=== PATIENT | male | born 1985 | race Two or more races ===

== ENCOUNTER 2023-06-25 19:14 | Emergency (ER) | payer MEDICAID, OTHER ==
[2023-06-25] MEDS ORDERED: CHL25C GT (19:43)
[2023-06-25 19:56] VITALS: BP 164/108; PULSE 84; RESP 16; TEMP 97.9; O2SAT 97
== END 2023-06-25 19:59 | disposition home or self-care (01) ==
LOC: ER 19:14
DX: F10.10 Alcohol abuse, uncomplicated (principal); F41.9 Anxiety disorder, unspecified; F31.9 Bipolar disorder, unspecified; F17.210 Nicotine dependence, cigarettes, uncomplicated

== ENCOUNTER 2023-06-29 20:45 | Emergency (ER) | payer MEDICAID ==
[~2023-06-29] VITALS: Ht 175.3 cm; Wt 72.7 kg
[~2023-06-29 20:45] MED LIST: CHL25C GT
[2023-06-29 21:18] VITALS: BP 167/100; PULSE 86; RESP 18; TEMP 97.7; O2SAT 98
[2023-06-29] MEDS ORDERED: DexAMETHasone SOD PHOS 10MG/1ML VIAL INJ IM ONE (22:00)
[2023-06-29] MEDS ORDERED: LIDOCAINE VISCOUS 2% 15ML UD MT ONE (22:00)
[2023-06-29] MEDS ORDERED: cefTRIAXone SOD 1,000 MG VL IM ONE (22:00)
[2023-06-30] MEDS ORDERED: CHL25C PO (00:29)
== END 2023-06-30 00:34 | disposition home or self-care (01) ==
LOC: ER 20:50
DX: F10.10 Alcohol abuse, uncomplicated (principal); F17.210 Nicotine dependence, cigarettes, uncomplicated; Z76.0 Encounter for issue of repeat prescription; Z79.899 Other long term (current) drug therapy; Y90.9 Presence of alcohol in blood, level not specified

== ENCOUNTER 2023-07-07 00:57 | Emergency (ER) | payer MEDICAID ==
[~2023-07-07] VITALS: Ht 177.8 cm; Wt 70.0 kg
[2023-07-07 00:57] VITALS: BP 166/83; PULSE 94; RESP 16; O2SAT 96
[~2023-07-07 00:57] MED LIST changes: +CHL25C PO
[2023-07-07 02:10] LABS: Basophils # (auto) 0 10 ^3/uL (0-0.2); Basophils % (auto) 0.5 % (0.0-2.0); Eosinophils # (auto) 0.2 10 ^3/uL (0-0.8); Eosinophils % (auto) 2.4 % (0.0-7.0); Hematocrit 48.4 % (41.0-53.0); Hemoglobin 16.3 g/dL (13.5-17.5); Lymphocytes # (auto) 2.6 10 ^3/uL (0.4-5.4); Mean Corpuscular Hemoglobin 32.1 pg (28.0-32.0); Mean Corpuscular Hgb Conc. 33.7 g/dL (32.0-36.0); Mean Corpuscular Volume 95.2 fL (80.0-100.0); Monocytes # (auto) 0.9 10 ^3/uL (0-1.3); Monocytes % (auto) 9.3 % (0.0-12.0); Neutrophils # (auto) 5.4 10 ^3/uL (1.6-8.6); Neutrophils % (auto) 59.8 % (37.0-80.0); Nucleated Red Blood Cells % 0.1 %; Red Blood Cells 5.08 10^6/uL (4.5-5.90); Red Cell Distribution Width 14.6 % (11.8-14.3); White Blood Cell 9.1 10^3/uL (4.4-10.8)
[2023-07-07 02:19] LABS: INR 0.93 (0.9-1.15); Prothrombin Time 9.8 sec (9.3-11.8)
[2023-07-07] MEDS ORDERED: SODIUM CHLORIDE 0.9% 1,000 ML IV ONE (03:00)
[2023-07-07 03:09] LABS: Alanine Aminotransferase 52 U/L (7-40); Albumin 5.5 g/dL (3.2-4.8); Alkaline Phosphatase 70 U/L (46-116); Anion Gap 9 (5-15); Aspartate Aminotransferase 43 U/L (13-40); BUN/Creatinine Ratio 7.1 (10.0-20.0); Blood Urea Nitrogen 7 mg/dL (9-23); Calcium 9.7 mg/dL (8.7-10.4); Carbon Dioxide 25 mmol/L (20-30); Chloride 110 mmol/L (98-107); Glucose 99 mg/dL (74-106); Potassium 3.9 mmol/L (3.5-5.1); Sodium 144 mmol/L (136-145)
[2023-07-07 03:10] LABS: Bilirubin, Total 0.3 mg/dL (0.2-1.0); Total Protein 8.1 g/dL (5.7-8.2)
[2023-07-07 03:17] LABS: Blood Alcohol 371.3 mg/dL (<10)
== END 2023-07-07 10:24 | disposition left against medical advice (07) ==
LOC: EDBD 00:57 → ER 00:57
DX: S00.01XA Abrasion of scalp, initial encounter (principal); F10.90 Alcohol use, unspecified, uncomplicated; F41.9 Anxiety disorder, unspecified; F32.9 Major depressive disorder, single episode, unspecified; F17.210 Nicotine dependence, cigarettes, uncomplicated; R51.9 Headache, unspecified; Z79.899 Other long term (current) drug therapy; Z98.890 Other specified postprocedural states; Z86.2 Personal history of diseases of the blood and blood-forming organs and certain disorders involving the immune mechanism; W18.39XA Other fall on same level, initial encounter; Y93.89 Activity, other specified; Y92.89 Other specified places as the place of occurrence of the external cause; Y99.8 Other external cause status; Y90.0 Blood alcohol level of less than 20 mg/100 ml
CPT/HCPCS: 36415; 70450; 72125; 80053; 80320; 85025; 85610; 85730; 96360; 99284; J7030